=== PATIENT | male | born 1980 | race Caucasian/White ===

== ENCOUNTER 2016-12-15 19:50 | Emergency (ER) | payer BC ==
[~2016-12-15] VITALS: Ht 185.4 cm; Wt 120.6 kg
[~2016-12-15 19:50] MED LIST: IBUP-103 PO; OMEP20TA PO
[2016-12-15 19:53] VITALS: TEMP 36.7; Ht 185.4 cm; Wt 120.6 kg
[2016-12-15 20:32] VITALS: O2SAT 100
[2016-12-15 20:38] LABS: MEAN CELL VOLUME 81.4 fL (80-100); MEAN CORPUSCULAR HEMOGLOBIN 29.3 pg (25-34); MEAN PLATELET VOLUME 11.9 fL (7.4-10.4); PLATELET COUNT 195 K/uL (130-400); RED BLOOD COUNT 5.53 M/uL (4.7-6.1); WHITE BLOOD COUNT 6.79 K/uL (4.8-10.8)
--- NOTE | 2016-12-15 20:39 | DIAGNOSTIC IMAGING REPORT ---
CHEST ONE VIEW PORTABLE CLINICAL HISTORY: CHEST PAIN dyspnea COMPARISON STUDY: 10/22/2016 FINDINGS: The bones soft tissues and hemidiaphragms are normal. The cardiomediastinal silhouette is normal. The lungs are clear. The pulmonary vasculature is normal. IMPRESSION: Negative chest. Electronically signed by: Benito Hernandez M.D. 12/15/2016 8:38 PM Dictated Date/Time: 12/15/2016 8:37 PM
[2016-12-15 20:47] LABS: PROTHROMBIN TIME (PATIENT) 10.6 SECONDS (9.0-12.0)
[2016-12-15 21:02] LABS: BUN/CREATININE RATIO 13.7 (10-20); CALCIUM 9.1 mg/dl (8.5-10.1); CREATININE 1.2 mg/dl (0.60-1.40); POTASSIUM 3.9 mmol/L (3.5-5.1)
[2016-12-15 21:05] LABS: ALB/GLOB RATIO 1.3 (0.9-2)
[2016-12-15 22:59] VITALS: BP 158/95; PULSE 71; O2SAT 96
--- NOTE | 2016-12-16 00:39 | EMERGENCY ROOM VISIT NOTE ---
History Report prepared by Laura: Betty Beltran Under the Supervision of: Dr. Jean-Paul Magana M.D. First contact with patient: 20:20 Chief Complaint: CHEST PAIN Stated Complaint: CHEST PAIN/TIGHTNESS, SOB Nursing Triage Summary: Patient reports intermittent CP (tightness) on left side of chest through out the day. Also reports SOB and numbness in left arm. Denies cardiac hx. History of Present Illness The patient is a 36 year old male who presents to the Emergency Room with complaints of episodes of left sided chest pain beginning last night. He describes the pain as a tightness. The patient states that last night he was sitting down finishing a beer when the tightness came over him for the first time. He notes the pain resolved very quickly. He notes that today after lunch he felt the same tightness sensation a few more times, each resolving quickly. Tonight he felt the tightness again and when walking around the house he felt short of breath, had slight trouble breathing, left arm numbness and fatigue. He notes the episode lasted 3 minutes total. Since arriving in ED, his symptoms have resolved. He denies cardiac history, recent similar symptoms, recent long trips or history of blood clots. Source of History: patient Onset: yesterday Position: chest (left) Quality: other (tightness) Timing: other (episodes) Associated Symptoms: + SOB, + fatigue, + numbness Review of Systems See HPI for pertinent positives & negatives. A total of 10 systems reviewed and were otherwise negative. Past Medical & Surgical Medical Problems: (1) Diabetes (2) Heart disease (3) Hypertension (4) Kidney disease (5) Kidney stone Family History Diabetes mellitus Heart disease Hypertension Kidney disease Kidney stones Social History Smoking Status: Never Smoker Alcohol Use: occasionally Marital Status: Housing Status: lives with family Occupation Status: employed Current/Historical Medications Scheduled Omeprazole (Omeprazole), 1 TAB PO BID Allergies Coded Allergies: No Known Allergies (Unverified , 10/22/16) Physical Exam Vital Signs Date Time Temp Pulse Resp B/P Pulse Ox O2 Delivery O2 Flow Rate FiO2 12/15/16 22:59 71 19 158/95 96 Room Air 12/15/16 22:07 77 18 130/83 97 Room Air 12/15/16 20:42 78 12/15/16 20:32 100 Room Air 12/15/16 19:55 100 Room Air 12/15/16 19:53 36.7 77 20 142/96 99 Room Air Physical Exam GENERAL: Patient is in no acute distress. HEENT: No acute trauma, normocephalic atraumatic, mucous membranes moist, no nasal congestion, no scleral icterus. NECK: No stridor, no adenopathy, no meningismus, trachea is midline. LUNGS: Clear to auscultation bilaterally, no wheeze, no rhonchi, breath sounds equal. HEART: Without murmurs gallops or rubs, regular rate and rhythm. CHEST: Nontender chest wall. ABDOMEN: Soft, nontender, bowel sounds positive, no hernias, no peritonitis. EXTREMITIES: No cyanosis or edema, full range of motion of all the joints without pain or difficulty, no signs for acute trauma. NEUROLOGIC: Oriented x 3, no acute motor or sensory deficits, no focal weakness. SKIN: No rash, no jaundice, no diaphoresis. Medical Decision & Procedures ER Provider Diagnostic Interpretation: X-ray results as stated below per interpretation by me and the radiologist: CHEST ONE VIEW PORTABLE CLINICAL HISTORY: CHEST PAIN dyspnea COMPARISON STUDY: 10/22/2016 FINDINGS: The bones soft tissues and hemidiaphragms are normal. The cardiomediastinal silhouette is normal. The lungs are clear. The pulmonary vasculature is normal. IMPRESSION: Negative chest. Electronically signed by: Benito Hernandez M.D. 12/15/2016 8:38 PM Dictated Date/Time: 12/15/2016 8:37 PM Laboratory Results 12/15/16 20:23 12/15/16 20:23 Test 12/15/16 20:23 12/15/16 22:43 Red Blood Count 5.53 M/uL (4.7-6.1) Mean Corpuscular Volume 81.4 fL (80-100) Mean Corpuscular Hemoglobin 29.3 pg (25-34) Mean Corpuscular Hemoglobin Concent 36.0 g/dl (32-36) RDW Standard Deviation 38.5 fL (36.4-46.3) RDW Coefficient of Variation 12.8 % (11.5-14.5) Mean Platelet Volume 11.9 fL (7.4-10.4) Prothrombin Time 10.6 SECONDS (9.0-12.0) Prothromb Time International Ratio 1.0 (0.9-1.1) Activated Partial Thromboplast Time 26.3 SECONDS (21.0-31.0) Partial Thromboplastin Ratio 1.0 Anion Gap 9.0 mmol/L (3-11) Est Creatinine Clear Calc Drug Dose 116.9 ml/min Estimated GFR () 90.3 Estimated GFR (Non- 77.9 BUN/Creatinine Ratio 13.7 (10-20) Calcium Level 9.1 mg/dl (8.5-10.1) Total Bilirubin 0.3 mg/dl (0.2-1) Aspartate Amino Transf (AST/SGOT) 18 U/L (15-37) Alanine Aminotransferase (ALT/SGPT) 33 U/L (12-78) Alkaline Phosphatase 80 U/L (45-117) Total Protein 7.5 gm/dl (6.4-8.2) Albumin 4.2 gm/dl (3.4-5.0) Globulin 3.3 gm/dl (2.5-4.0) Albumin/Globulin Ratio 1.3 (0.9-2) Bedside D-Dimer 191 ng/mlFEU (0-450) Bedside Troponin I 0.000 ng/ml (0-0.045) Laboratory results reviewed by me. ECG Indication: chest pain Rate (beats per minute): 65 Rhythm: normal sinus Findings: no acute ischemic change, no ectopy ED Course 2019: The patient was evaluated in room A12. A complete history and physical exam was performed. 2141: I reevaluated the patient. 2311: Reevaluated the patient. Discussed results and discharge instructions: he verbalized understanding and agreement. The patient is ready for discharge. Medical Decision The patient is a 36 year old male who presents to the ED with complaints of chest pain. Differential diagnoses considered include musculoskeletal pain, cardiac ischemia, PE, NC, pneumonia, aortic dissection. There is no leukocytosis or concerning anemia. No significant electrolyte abnormality, kidney failure or hepatitis. EKG shows a normal sinus rhythm, no acute ischemia. Cardiac enzyme testing 2 is not suggestive of acute cardiac injury. Chest film shows no mediastinal widening, pneumonia or pneumothorax. The patient presents with very short-lived, nonexertional chest pain. He has no cardiac history and really no cardiac risk factors. He has had a few episodes of pain while sitting in the emergency room, they have been very short lived. They have self resolved. The patient's pain is not likely cardiac. I do think family doctor follow-up and maybe eventual stress testing would be beneficial. The patient was encouraged to treat his symptoms with [id number] medications, rest was encouraged. If he has any exertional chest pain or symptoms, he is to report back to the emergency room. Impression Primary Impression: Left sided chest pain Scribe Attestation The scribe's documentation has been prepared under my direction and personally reviewed by me in its entirety. I confirm that the note above accurately reflects all work, treatment, procedures, and medical decision making performed by me. Departure Information Dispostion Home / Self-Care Referrals No Doctor, Assigned (PCP) Forms HOME CARE DOCUMENTATION FORM, IMPORTANT VISIT INFORMATION [facility] Additional Instructions motrin or tylenol for pain heat to the chest wall may help take it easy as we discussed set up fam md for possible stress test return for exertional symptoms or if worsening as we discussed heart and lung testing today was all ok
== END 2016-12-15 23:22 | disposition home or self-care (01) ==
LOC: C.EDB 19:51 → C.EDA 23:22
DX: R07.9 Chest pain, unspecified (principal); E11.9 Type 2 diabetes mellitus without complications; I51.9 Heart disease, unspecified; I10 Essential (primary) hypertension; N28.9 Disorder of kidney and ureter, unspecified; Z83.3 Family history of diabetes mellitus; Z82.49 Family history of ischemic heart disease and other diseases of the circulatory system

== ENCOUNTER → 2017-09-18 | Outpatient (CLI) | payer BC ==
[~2017-09-18] MED LIST changes: -IBUP-103 PO
[2017-09-18 10:58] LABS: ALT/SGPT 37 U/L (12-78); AST/SGOT 16 U/L (15-37); BLOOD UREA NITROGEN 15 mg/dl (7-18); BUN/CREATININE RATIO 13.6 (10-20); CALCIUM 8.9 mg/dl (8.5-10.1); CARBON DIOXIDE 28 mmol/L (21-32); CHLORIDE 103 mmol/L (98-107); CREATININE 1.09 mg/dl (0.60-1.40); GLUCOSE 88 mg/dl (70-99); SODIUM 138 mmol/L (136-145); TRIGLYCERIDES 140 mg/dl (0-150); VERY LOW DENSITY LIPOPROT CALC 28 mg/dl
[2017-09-18 11:01] LABS: ALB/GLOB RATIO 1.2 (0.9-2); ALKALINE PHOSPHATASE 94 U/L (45-117); CHOLESTEROL 196 mg/dl (0-200); CHOLESTEROL/HDL RATIO 5.6; HDL CHOLESTEROL 35 mg/dl; LDL CHOLESTEROL CALCULATED 133 mg/dl
== END | disposition home or self-care (01) ==
LOC: C.LAB 09:28
PROVIDERS: ATTEND Neuromusculoskeletal Medicine & OMM
DX: Z00.00 Encounter for general adult medical examination without abnormal findings (principal); E66.9 Obesity, unspecified